=== PATIENT | female | born 1975 | race Caucasian/White ===

== ENCOUNTER 2020-08-04 17:51 | Observation (INO) ==
[2020-08-04 18:20] LABS: Hematocrit 42 % (35-47); Hemoglobin 13.8 g/dL (12.0-16.0); Mean Corpuscular HGB Conc 33 g/dL (31-36); Mean Corpuscular Hemoglobin 27 pg (27-31); Mean Corpuscular Volume 83 fL (80-97); Mean Platelet Volume 8.4 fL (7.4-10.4); Platelet Count 277 10^3/uL (150-450); Red Blood Count 5.05 10^6 /uL (3.70-4.87); Red Cell Distribution Width 15 % (10-15); White Blood Count 13.3 10^3/uL (3.5-10.8)
[2020-08-04 18:29] LABS: Activated Partial Thrombo Time 21.2 seconds (26.0-38.0); INR 1.01 (0.82-1.09)
[2020-08-04] MEDS ORDERED: NS 0.9% 1000 ml BAG 1,910 ML IV ONE (18:30)
[2020-08-04 18:41] LABS: ALT 9 U/L (7-52); Albumin 4.1 g/dL (3.2-5.2); Albumin/Globulin Ratio 1.5 (1-3); Alkaline Phosphatase 67 U/L (34-104); BUN/Creatinine Ratio 14.6 (8-20); Blood Urea Nitrogen 15 mg/dL (6-24); CO2 Carbon Dioxide 20 mmol/L (22-32); Calcium 9.5 mg/dL (8.6-10.3); Chloride 109 mmol/L (101-111); Creatine Kinase 39 U/L (10-223); EGFR African American 70.4 (>60); EGFR Non-African American 58.2 (>60); Globulin 2.8 g/dL (2-4); Glucose 112 mg/dL (70-100); Sodium 139 mmol/L (135-145); Total Protein 6.9 g/dL (6.4-8.9)
[2020-08-04 18:42] LABS: BNP 60 pg/mL (<=100)
[2020-08-04 18:46] LABS: HCG Pregnancy < 0.60 mIU/mL
[2020-08-04 19:05] LABS: Anion Gap 10 mmol/L (2-11)
[2020-08-04 19:06] LABS: ABS Basophils 0.1 10^3/ul (0-0.2); ABS Lymphocytes 1.6 10^3/ul (1.0-4.8); ABS Monocytes 0.7 10^3/ul (0-0.8); ABS Neutrophils 10.8 10^3/ul (1.5-7.7); Eosinophil % 0.2 %; Lymphocyte % 12.2 %
[2020-08-04 19:12] LABS: Alcohol, S < 10 mg/dL (<10)
[2020-08-04 19:25] LABS: TSH Ultra Thyroid Stim Horm 6.14 mcIU/mL (0.34-5.60)
[2020-08-04 20:15] LABS: Potassium Redraw 3.6 mmol/L (3.5-5.0)
[2020-08-04 20:43] LABS: Urine Appearance Cloudy; Urine Bilirubin Negative (Negative); Urine Blood Negative (Negative); Urine Color Straw; Urine Glucose Negative (Negative); Urine Ketones Trace (Negative); Urine Nitrite Negative (Negative); Urine Protein Negative (Negative); Urine Specific Gravity 1.009 (1.010-1.030); Urine Urobilinogen Negative (Negative)
[2020-08-04] MEDS ORDERED: cefTRIAXone 1 gm/50 mL NS BAG 1 GM/50 ML BAG IV ONE (20:46)
[2020-08-04 20:58] LABS: Urine Benzodiazepine Screen None Detected (None Detect); Urine Cannabinoids Screen None Detected (None Detect); Urine Opiates Screen None Detected (None Detect)
[2020-08-04 21:55] LABS: Influenza A Molecular Negative (Negative); Influenza B Molecular Negative (Negative)
[2020-08-05] MEDS ORDERED: NS 0.9% 1000 ml BAG 1,000 ML IV SCH (00:45)
[2020-08-05 07:32] LABS: BUN/Creatinine Ratio 12.9 (8-20); Calcium 7.8 mg/dL (8.6-10.3); EGFR African American 87.9 (>60); EGFR Non-African American 72.7 (>60); Potassium 3.4 mmol/L (3.5-5.0)
[2020-08-05 07:46] LABS: ABS Lymphocytes 1.5 10^3/ul (1.0-4.8); ABS Monocytes 0.7 10^3/ul (0-0.8); ABS Neutrophils 11.2 10^3/ul (1.5-7.7); Eosinophil % 0.1 %; Hematocrit 38 % (35-47); Hemoglobin 12.4 g/dL (12.0-16.0); Lymphocyte % 11.3 %; Mean Corpuscular HGB Conc 33 g/dL (31-36); Mean Corpuscular Hemoglobin 27 pg (27-31); Mean Corpuscular Volume 84 fL (80-97); Mean Platelet Volume 8.4 fL (7.4-10.4); Platelet Count 236 10^3/uL (150-450); Red Blood Count 4.57 10^6 /uL (3.70-4.87); Red Cell Distribution Width 15 % (10-15); White Blood Count 13.4 10^3/uL (3.5-10.8)
[2020-08-05] MEDS ORDERED: Potassium Chloride LIQUID 20 MEQ/15 ML LIQUID PO ONE (08:39)
[2020-08-05] MEDS ORDERED: NORGESTIMATE ETHINYL ESTRADIOL PO SCH (09:00)
[2020-08-05 09:01] LABS: Magnesium 1.8 mg/dL (1.9-2.7)
[2020-08-05 11:06] VITALS: BP 151/82
== END 2020-08-05 14:45 | disposition home or self-care (01) ==
LOC: ED 17:51 → MED 17:51
PROVIDERS: ADMIT Student in an Organized Health Care Education/Training Program; ATTEND Internal Medicine